=== PATIENT | female | born 1960 | race Caucasian/White ===

== ENCOUNTER 2024-03-23 18:20 | Observation (INO) | payer MEDICARE ==
[2024-03-23 21:29] LABS: #Basophils Less than 0.03 10x3/uL (0.0-0.2); %Basophils 0.5 % (0.0-1.0); %Eosinophils 1.6 % (0.0-10.0); %Lymphocytes 52.2 % (21.0-51.0); %Monocytes 7.6 % (0.0-10.0); %Neutrophils 37.9 % (42.0-75.0); Hematocrit 32.1 % (36.0-47.0); Hemoglobin 10.5 g/dL (12.0-16.0); Mean Corpuscular HGB CONC 32.7 g/dL (32.0-36.0); Mean Corpuscular Hemoglobin 32.3 pg (27.0-31.0); Mean Corpuscular Volume 98.8 fL (78.0-98.0); Mean Platelet Volume 10.8 fL (7.4-10.4); Platelet Count 178 10x3/uL (130-400); RBC Distribution Width 12.3 % (11.5-14.5); Red Blood Cell (RBC) Count 3.25 mill/uL (4.20-5.40)
[2024-03-23 21:40] LABS: ALT (SGPT) 40 U/L (8-55); AST (SGOT) 25 U/L (5-34); Albumin 3.5 g/dL (3.4-4.8); Alkaline Phosphatase 78 U/L (40-110); Anion Gap 13 mmol/L (10-20); BUN (Urea Nitrogen) 10 mg/dL (9.8-20.1); Bilirubin, Total 0.2 mg/dL (0.2-1.2); Calc. Creatinine Clearance 0 mL/min (70-130); Carbon Dioxide 20 mmol/L (23-31); Chloride 113 mmol/L (98-107); Estimated GFR 92; Globulin 2.6 g/dL (2.4-3.5); Glucose 158 mg/dL (80-115); Lipase 102 U/L (8-78); Potassium 3.7 mmol/L (3.5-5.1); Protein, Total 6.1 g/dL (5.8-8.1); Sodium 142 mmol/L (136-145)
[2024-03-23 21:45] LABS: Troponin I Less than 0.010 ng/mL (< 0.028)
[2024-03-24] MEDS ORDERED: Ondansetron PF 4 MG/2 ML Vial IVP PRN (00:38)
[2024-03-24] MEDS ORDERED: Nitroglycerin 0.4 MG TAB (25 Tab Bottle) SL PRN (00:38)
[2024-03-24] MEDS ORDERED: Ondansetron ODT 4 MG TAB PO PRN (00:38)
[2024-03-24] MEDS ORDERED: Acetaminophen 650 MG Suppository PR PRN (00:38)
[2024-03-24] MEDS ORDERED: Acetaminophen 325 MG TAB PO PRN (00:38)
[2024-03-24 02:55] VITALS: BMI 21.5
[2024-03-24] MEDS: Furosemide 20 MG TAB PO SCH (08:51)
[2024-03-24] MEDS: Aspirin Chewable 81 MG TAB PO SCH (08:51)
[2024-03-24] MEDS: Famotidine 20 MG TAB PO SCH (08:51)
[2024-03-24] MEDS: Famotidine/PF 20 mg/2ml Vial SLOW IVP SCH (09:35)
[2024-03-24 09:42] LABS: #Basophils Less than 0.03 10x3/uL (0.0-0.2); %Basophils 0.3 % (0.0-1.0); %Eosinophils 2.3 % (0.0-10.0); %Monocytes 8.8 % (0.0-10.0); %Neutrophils 45.6 % (42.0-75.0); Hematocrit 32.1 % (36.0-47.0); Hemoglobin 10.9 g/dL (12.0-16.0); Mean Corpuscular Hemoglobin 32.4 pg (27.0-31.0); Mean Corpuscular Volume 95.5 fL (78.0-98.0); Mean Platelet Volume 10.3 fL (7.4-10.4); Platelet Count 152 10x3/uL (130-400); RBC Distribution Width 12.2 % (11.5-14.5); Red Blood Cell (RBC) Count 3.36 mill/uL (4.20-5.40)
[2024-03-24 10:01] LABS: Troponin I Less than 0.010 ng/mL (< 0.028)
[2024-03-24 10:25] LABS: Free T4 (Free Thyroxine) 1.09 ng/dL (0.70-1.48); Thyroid Stimulating Hormone Less than 0.0083 uIU/mL (0.35-4.94)
[2024-03-24 10:29] LABS: ALT (SGPT) 42 U/L (8-55); AST (SGOT) 27 U/L (5-34); Albumin 3.4 g/dL (3.4-4.8); Alkaline Phosphatase 83 U/L (40-110); Anion Gap 12 mmol/L (10-20); BUN (Urea Nitrogen) 9 mg/dL (9.8-20.1); Bilirubin, Total 0.4 mg/dL (0.2-1.2); Calc. Creatinine Clearance 94 mL/min (70-130); Calcium 9.1 mg/dL (7.8-10.44); Carbon Dioxide 23 mmol/L (23-31); Cardiac Risk 3.7 (Less than 4.5); Chloride 111 mmol/L (98-107); Cholesterol 134 mg/dl (< 200 Desired); Estimated GFR 100; Globulin 2.5 g/dL (2.4-3.5); Glucose 122 mg/dL (80-115); HDL Cholesterol 36 mg/dL (>60 Neg Risk); LDL Cholesterol, Calculated 72 mg/dL; Potassium 4.1 mmol/L (3.5-5.1); Protein, Total 5.9 g/dL (5.8-8.1); Sodium 142 mmol/L (136-145); Triglycerides 132 mg/dL (Less than 150)
[2024-03-24 12:16] VITALS: BP 119/74; TEMP 98.7
[2024-03-24] MEDS ORDERED: Non-Formulary Item 1 EACH (Atorvastatin Calcium [Atorvastatin Calcium] 80 MG Tablet) PO SCH (21:00)
[2024-03-24] MEDS ORDERED: Atorvastatin Calcium 40 MG TAB PO SCH (21:00)
== END 2024-03-24 12:22 | disposition home or self-care (01) ==
LOC: ERS 18:20 → 2SW 23:16
PROVIDERS: ADMIT Student in an Organized Health Care Education/Training Program; ATTEND Family Medicine
DX: R07.9 Chest pain, unspecified (principal); F17.290 Nicotine dependence, other tobacco product, uncomplicated; F12.10 Cannabis abuse, uncomplicated; Z79.82 Long term (current) use of aspirin; Z79.02 Long term (current) use of antithrombotics/antiplatelets; Z79.899 Other long term (current) drug therapy
CPT/HCPCS: 80053; 80061; 82962; 83690; 83880; 84439; 84481; 84484 ×2; 85025; 85379; 93005; 99285; G0378 ×3; 36415; 36416; 84443

== ENCOUNTER 2024-04-08 10:49 | Emergency (ER) | payer MEDICARE | END 2024-04-08 11:10 | disposition left against medical advice (07) | LOC: ERS 10:49 | DX: Z53.21 Procedure and treatment not carried out due to patient leaving prior to being seen by health care provider (principal) ==